=== PATIENT | male | born 1965 | race Caucasian/White ===

== ENCOUNTER 2025-05-27 08:38 | Day surgery (SDC) | payer BC ==
--- NOTE | 2025-05-23 14:59 | ELECTROCARDIOGRAPH REPORT ---
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 AMERICA Cooper Measurements Intervals Warden Rate: 89 P: 60 GA: 177 QRS: 50 QRSD: 120 T: -32 QT: 363 QTc: 442 Interpretive Statements Sinus rhythm IVCD, consider atypical RBBB Electronically Signed On 05-24-2025 20:19:[address] AMERICA Cooper Please click the below link to view image of tracing.
[2025-05-23 15:09] LABS: MEAN PLATELET VOLUME 7.3 FL (7.4-10.4); RED CELL DISTRIBUTION WIDTH 12.8 % (11.5-14.5)
[2025-05-23 15:18] LABS: CREATININE 1.16 MG/DL (0.60-1.10); TOTAL CARBON DIOXIDE 29.8 MMOL/L (24-32); eGFR 64 ML/MIN
[~2025-05-27] VITALS: Ht 182.9 cm; Wt 103.0 kg
[2025-05-27] VITALS (7 sets, daily range): BP systolic 131–143; BP diastolic 77–91; PULSE 67–72; RESP 12–16; TEMP 98; O2SAT 93–100
[~2025-05-27 08:38] MED LIST: ATOR20TA66 PO; BUPIVAcaine/PF 2.5mg/ml (0.25%) 10ml vial ONE; DAPA10TA7 PO; GLIM1TAB57 PO; IRBE1TAB33 PO; LANS30CA56 PO; LIDOcaine 2% (20mg/ml) 5ml vial ONE; SEMA14TA2 PO; TADA5TAB2 PO; TAMS-55 PO
[2025-05-27] MEDS ORDERED: LIDOcaine 2% (20mg/ml) 5ml vial ONE (08:55)
[2025-05-27] MEDS ORDERED: hydrALAZINE 20mg/ml inj. IV PRN (09:00)
[2025-05-27] MEDS ORDERED: ondansetron/PF 4mg/2ml inj IV PRN (09:00)
[2025-05-27] MEDS ORDERED: labetalol 20mg/4ml (5mg/ml) syringe IV PRN (09:00)
[2025-05-27] MEDS ORDERED: ringers solution, lacted 1,000 ML IV SCH (09:00)
[2025-05-27] MEDS ORDERED: morphine 4 MG/ML inj SYRINge IV PRN (09:00)
[2025-05-27] MEDS ORDERED: fentaNYL/PF 50MCG/1 ML 2ML syringe ONE (09:03)
[2025-05-27] MEDS ORDERED: MIDAZolam 1 MG/ML 5ML VIAL ONE (09:04)
[2025-05-27] MEDS ORDERED: propofol 10mg/ml 20ml vial IV ONE (09:26)
[2025-05-27] MEDS: ceFAZolin 2gm/dext,iso 50mL 50 ML IV ONE (10:03)
--- NOTE | 2025-05-27 12:03 | OPERATIVE REPORT ---
Operative Report Providers to ~ Date of Procedure: May 27, 2025 Pre-Operative Diagnosis: Bilateral carpal tunnel and trigger fingers Post-Operative Diagnosis Bilateral carpal tunnel syndrome. Right thumb and middle finger trigger finger. Left index finger and middle finger trigger finger. Procedure Performed Bilateral open carpal tunnel release, trigger finger release right thumb, right middle finger, left index finger, left middle finger Surgeon: Andres Mims MD Delivery Consultant None Anesthesiologist: Philip Morales Type of Anesthesia: Other (Local anesthetic with sedation) Findings: Estimated Blood Loss: None Specimen Removed: None Description of Procedure: This patient is a 60-year-old man with the above issues in both hands. Surgery is indicated to improve function and relieve symptoms. Risks and benefits were discussed with the patient. Some of the risks include but are not limited to infection, bleeding, nerve vessel damage and incomplete relief of symptoms. The patient agreed to proceed. Once in the operating room the right arm was prepped and draped in usual manner. Time-out procedure was observed and local anesthetic was infiltrated proximal to the wrist crease. A 3 cm incision was then made in the palm ulnar to the thenar crease in line with the radial side of the ring finger through skin and palmar fascia. Dissection was taken down to the transverse carpal ligament which was then opened in line with the skin incision. The median nerve was pro tected while the ligament was divided distally to the transverse arch and then proximally to the wrist crease followed by division of the forearm fascia a short distance. The nerve was decompressed and no lesions were noted in the carpal canal. Incision was irrigated and closed with nylon suture. Attention was turned to the right thumb where a transverse incision was made over the MM CP crease. Dissection was taken down to the tendon sheath in the nerves were protected. The A1 jessie was divided in the midline and the tendon was inspected and noted to be free of lesions. The next incision was made longitudinally over the middle finger flexor tendon at the distal palm level and dissection was taken down to the tendon sheath which was then opened in the midline. The tendons were inspected and the incisions were then irrigated and closed with nylon suture. A sterile dressing was applied. The tourniquet was released the hand perfused well. Attention was turned to the left hand which was prepped in the usual manner Local anesthetic was infiltrated proximal to the left wrist crease. A 3 cm incision was then made in the palm ulnar to the thenar crease in line with the radial side of the ring finger through skin and palmar fascia. Dissection was taken down to the transverse carpal ligament which was then opened in line with the skin incision. The median nerve was protected while the ligament was divided distally to the transverse arch and then proximally to the wrist crease followed by division of the forearm fascia a short distance. The nerve was decompressed and no lesions were noted in the carpal canal. Two more incisions were made, one over the index finger and one over the middle finger flexor tendons at the distal palm level. Starting with the index finger dissection was taken down to the tendon sheath which was identified and incised in the midline. A similar dissection was done to the middle finger to released the A1 jessie. All the tendons were noted to be free of lesions and the incisions were irrigated and closed with nylon suture Incision was irrigated and closed with nylon suture. A sterile dressing was applied. The tourniquet was released the hand perfused well. The patient was returned to the recovery room in stable condition and tolerated the procedure well. ANDRES MIMS Jr., MD May 27, 2025 12:03
== END 2025-05-27 10:57 | disposition home or self-care (01) ==
LOC: PAS 08:38
PROVIDERS: ATTEND Orthopaedic Surgery Hand Surgery
DX: G56.03 Carpal tunnel syndrome, bilateral upper limbs (principal); M65.311 Trigger thumb, right thumb; M65.331 Trigger finger, right middle finger; M65.322 Trigger finger, left index finger; M65.332 Trigger finger, left middle finger; I45.10 Unspecified right bundle-branch block; I10 Essential (primary) hypertension; E11.9 Type 2 diabetes mellitus without complications; E78.00 Pure hypercholesterolemia, unspecified; K21.9 Gastro-esophageal reflux disease without esophagitis; Z79.82 Long term (current) use of aspirin; Z79.891 Long term (current) use of opiate analgesic; Z79.899 Other long term (current) drug therapy; Z98.890 Other specified postprocedural states
CPT/HCPCS: 26055; 36415; 64721; 80053; 82948; 85025; 93005; J2003; J2250; J2704; J3010; J3490; J7030; J7120; Z7506; Z7512; A4215; A6449